=== PATIENT | male | born 1960 | race Caucasian/White ===

== ENCOUNTER 2018-08-20 19:18 | Inpatient (IN) | payer MEDICARE, OTHER ==
[2018-08-20] MEDS ORDERED: Sodium Chloride 0.9% 1,000 ML IV STA (23:26)
--- NOTE | 2018-08-20 23:31 | ED PDOC ---
HPI: Abdomen Time Seen by Provider: 08/20/18 23:02 Chief Complaint (Nursing): Abdominal Pain Chief Complaint (Provider): abdominal pain History Per: Patient, Family (son) History/Exam Limitations: no limitations Onset/Duration Of Symptoms: Days (3) Current Symptoms Are (Timing): Still Present Location Of Pain/Discomfort: Diffuse Associated Symptoms: Nausea, Vomiting Last Bowel Movement: Days Ago (2) Additional Complaint(s): 58 y/o male presents for evaluation of diffuse abdominal pain x 3 days. Associated nausea/vomiting. Patient states he is unable to keep anything down by mouth. Last bowel movement 2 days ago. Denies fever, chest pain, shortness of breath, palpitations, urinary symptoms. Patient was evaluated by his PMD today and sent to the ED for further evaluation PMD: Dr. Randy Quintero Past Medical History Reviewed: Historical Data, Nursing Documentation, Vital Signs Vital Signs: Last Vital Signs Temp 98.7 F 08/20/18 20:23 Pulse 96 H 08/20/18 20:23 Resp 16 08/20/18 20:23 BP 120/67 08/20/18 20:23 Pulse Ox 97 08/20/18 20:23 Primary Care Provider: Mikhail Quintero - Medical History PMH: Diabetes, Hyperlipidemia - Family History Family History: States: No Known Family Hx - Living Arrangements Living Arrangements: With Family - Allergies Allergies/Adverse Reactions: Allergies Allergy/AdvReac Type Severity Reaction Status Date / Time No Known Allergies Allergy Verified 08/20/18 20:22 Review of Systems ROS Statement: Except As Marked, All Systems Reviewed And Found Negative Gastrointestinal: Positive for: Nausea, Vomiting, Abdominal Pain, Constipation Physical Exam - Reviewed Nursing Documentation Reviewed: Yes Vital Signs Reviewed: Yes - Physical Exam Appears: Positive for: Well, Non-toxic, No Acute Distress Head Exam: Positive for: ATRAUMATIC, NORMAL INSPECTION, NORMOCEPHALIC Skin: Positive for: Normal Color Eye Exam: Positive for: Normal appearance ENT: Positive for: Normal ENT Inspection Cardiovascular/Chest: Positive for: Regular Rate, Rhythm Respiratory: Positive for: Normal Breath Sounds Gastrointestinal/Abdominal: Positive for: Soft, Tenderness (diffuse), Distended. Negative for: Bowel Sounds Back: Positive for: Normal Inspection Extremity: Positive for: Normal ROM Neurological/Psych: Positive for: Awake, Alert, Oriented (x3) - Laboratory Results Result Diagrams: 08/21/18 00:05 08/21/18 00:05 - ECG ECG: Positive for: Viewed By Me (reviewed by ED attending) ECG Rhythm: Positive for: Sinus Rhythm O2 Sat by Pulse Oximetry: 97 - Radiology X-Ray: Viewed By Me X-Ray Interpretation: No Acute Disease - Progress ED Course And Treament: -cbc -cmp -pt/ptt -urinalysis -ekg -cxr -CT abd/pelvis IV contrast -IV zofran -IV morphine -IV NS bolus CT SCAN OF THE ABDOMEN AND PELVIS WITH CONTRAST. CLINICAL HISTORY: Abdominal pain. Vomiting, constipated. TECHNIQUE: Multiple axial and coronal CT images were obtained through the abdomen and pelvis after administration of intravenous contrast material. COMMENTS: Bilateral basilar hypoventilatory pulmonary changes. Enlarged fatty liver. Impacted gallstone at the neck of the gallbladder. Distended, inflamed gallbladder. Acute calculous cholecystitis. Nondilated biliary tree. Uncomplicated colonic diverticulosis. Mild prostatomegaly. Scattered calcified atheromatous plaques in the aorta and its branches. There is no intra or extrahepatic biliary ductal dilatation. The spleen is normal. The pancreas is of normal contour and attenuation characteristics. There is no evidence of adrenal mass. Both kidneys demonstrate prompt and equal nephrograms. The kidneys are normal in size, shape and configuration. There is no evidence of renal or ureteral mass. No renal or ureteral calculi are identified. There is no hydroureter or hydronephrosis. No evidence for appendicitis. There is no bowel wall thickening. No evidence for small or large bowel obstruction. There is no evidence of a bdominal ascites or lymphadenopathy. There is no evidence of intrinsic or extrinsic bladder mass. There is no pelvic ascites or lymphadenopathy. Images of the lung bases show no evidence of pleural or parenchymal mass. There are no pleural effusions. The bony structures are free of lytic or blastic lesions. IMPRESSION: Bilateral basilar hypoventilatory pulmonary changes. Enlarged fatty liver. Impacted gallstone at the neck of the gallbladder. Distended, inflamed gallbladder. Acute calculous cholecystitis. Nondilated biliary tree. Uncomplicated colonic diverticulosis. Mild prostatomegaly. Scattered calcified atheromatous plaques in the aorta and its branches. Ultrasound the right upper quadrant. Indication: Abdominal pain. Vomiting. Constipation. Technique: Real-time ultrasound images were obtained. Findings: Enlarged liver measuring 22.8 cm. Diffuse hepatic steatosis. Impacted stone in the neck of the gallbladder measuring 3.5 cm. Diffuse thickening of the wall of the gallbladder measuring 6.2 mm. Negative sonographic Daniels. Nondilated common bile duct measuring 6.7 mm. Limited visualization of the pancreas secondary to gaseous bowel distention. Unremarkable IVC. Nonaneurysmal aorta. Unremarkable right kidney. Impression: Acute calculous cholecystitis IV zosyn ordered Case discussed with Dr. Quintero for admission Case discussed with Dr. Arredondo, enrollment services vice president on-call, for consult; recommends NPO Disposition - Clinical Impression Clinical Impression: Acute cholecystitis - Patient ED Disposition Is Patient to be Admitted: Yes - Disposition Disposition Time: 05:10 Condition: FAIR Forms: [facility] [employer] (Urdu)
[2018-08-21] MEDS ORDERED: Iohexol 300 100 ML IJ ONE (02:22)
[2018-08-21] MEDS ORDERED: Sodium Chloride 0.9% 50 ML IV ONE (02:22)
[2018-08-21 04:31] LABS: BASO # 0.1 K/uL (0.0-0.2); BASO % 0.4 % (0.0-2.0); EOS # 0.2 K/uL (0.0-0.7); EOS % 1.4 % (0.0-4.0); HEMOGLOBIN 14.5 g/dL (12.0-18.0); LYMPH # 2.7 K/uL (1.0-4.3); LYMPH % 19.6 % (20.0-40.0); MEAN CELL VOLUME 88.2 fl (80.0-94.0); MEAN CORPUSCULAR HEMOGLOBIN 29.3 pg (27.0-31.0); MEAN CORPUSCULAR HGB CONC 33.3 g/dL (33.0-37.0); NEUT # 9.9 K/uL (1.8-7.0); NEUT % 71.6 % (50.0-75.0); RBC 4.96 Mil/uL (4.40-5.90); RED CELL DISTRIBUTION WIDTH 14.4 % (11.5-14.5); WHITE BLOOD COUNT 13.8 K/uL (4.8-10.8)
[2018-08-21 04:38] LABS: BLOOD UREA NITROGEN 12 mg/dl (9-20); GFR NON-AFRICAN AMERICAN > 60; PARTIAL THROMBOPLASTIN TIME 43.3 Seconds (25.6-37.1)
[2018-08-21 04:39] LABS: ALB/GLOB RATIO 1.3 (1.0-2.1); ALBUMIN 4.6 g/dL (3.5-5.0); ALT/SGPT 26 U/L (21-72); AST/SGOT 29 U/L (17-59); CALCIUM 9.2 mg/dL (8.4-10.2); LIPASE 56 U/L (23-300)
[2018-08-21 04:40] LABS: URINE BILIRUBIN NEGATIVE (NEGATIVE); URINE BLOOD NEGATIVE (NEGATIVE); URINE CLARITY SLIGHTY-CLOUDY (Clear); URINE COLOR AMBER (YELLOW); URINE GLUCOSE (UA) NEG (NEGATIVE); URINE LEUKOCYTE ESTERASE NEG Leu/uL (Negative); URINE PROTEIN 30 mg/dL (NEGATIVE)
[2018-08-21 04:42] LABS: INR 1.1; PROTHROMBIN TIME 12.9 Seconds (9.8-13.1)
[2018-08-21] MEDS ORDERED: Piperacillin/Tazobact 3.375 GM in Sodium Chloride 0.9% 100 ML IV ONE (04:56)
--- NOTE | 2018-08-21 05:16 | CP.PCM.CON ---
History of Present Illness - History of Present Illness History of Present Illness: Surgery Consult note. Dr. Jacobsen service 58yo M with PMHx of DM, HTN who was admitted to the [facility] ED with RUQ/Epigastric pain for 4 days. Pain described as sharp, associated with Nausea and bilious emesis, worsening. Denies any remitting factors. Denies any subjective fevers or chills. No CP/SOB. No diarrhea. No urinary complaints. Last food intake yesterday afternoon. Reports no BMs in 3 days. Has been having regular flatus. Denies melena or bloody stool. CT A/P noted with impacted stone at GB neck with perichole fluid. Abd US noted with impacted stone at GB neck, GB wall thinkening and perichole fluid consistent with acute cholecystitis. PMHx: HTN, DM PSHx: bilateral knee miniscus repair Family Hx: non-contributory Social Hx: Lives alone. Denies Tobacco use, Denies illicit drugs, Denies ETOH use. NKDA Review of Systems - Review of Systems All systems: reviewed and no additional remarkable complaints except Past Patient History - Past Medical History & Family History Past Family History: Reviewed and not pertinent - Past Social History Smoking Status: Never Smoked Alcohol: None Drugs: Denies Home Situation {Lives}: Alone - ENDOCRINE/METABOLIC Hx Diabetes Mellitus Type 2: Yes - PSYCHIATRIC Hx Substance Use: No - SURGICAL HISTORY Hx Orthopedic Surgery: Yes (bilateral knee surgery) Other/Comment: ear surgery - ANESTHESIA Hx Anesthesia: Yes Meds Allergies/Adverse Reactions: Allergies Allergy/AdvReac Type Severity Reaction Status Date / Time No Known Allergies Allergy Verified 08/20/18 20:22 - Medications Medications: Current Medications Piperacillin Sod/Tazobactam (Sod 3.375 gm/ Sodium Chloride) 100 mls @ 100 mls/hr IV ONCE ONE; Protocol Stop: 08/21/18 05:55 Physical Exam - Constitutional Appears: Non-toxic - Head Exam Head Exam: ATRAUMATIC, NORMAL INSPECTION, NORMOCEPHALIC - Eye Exam Eye Exam: EOMI. absent: Scleral icterus - ENT Exam ENT Exam: Mucous Membranes Dry - Respiratory Exam Respiratory Exam: NORMAL BREATHING PATTERN. absent: Accessory Muscle Use - Cardiovascular Exam Cardiovascular Exam: RRR. absent: JVD - GI/Abdominal Exam GI & Abdominal Exam: Soft. absent: Distended, Firm, Guarding Additional comments: RUQ and epigastric tenderness +Daniels's sign - Extremities Exam Extremities exam: Positive for: normal inspection. Negative for: calf tenderness - Neurological Exam Neurological exam: Alert, Oriented x3 - Skin Skin Exam: Dry, Intact, Normal Color, Warm Results - Vital Signs Recent Vital Signs: Last Vital Signs Temp 98.7 F 08/20/18 20:23 Pulse 96 H 08/20/18 20:23 Resp 16 08/20/18 20:23 BP 120/67 08/20/18 20:23 Pulse Ox 97 08/20/18 23:31 - Labs Result Diagrams: 08/21/18 00:05 08/21/18 00:05 Labs: Laboratory Results - last 24 hr 08/21/18 08/21/18 08/21/18 00:05 00:05 00:05 WBC 13.8 H RBC 4.96 Hgb 14.5 Hct 43.7 MCV 88.2 MCH 29.3 MCHC 33.3 RDW 14.4 Plt Count 289 MPV 8.0 Neut % (Auto) 71.6 Lymph % (Auto) 19.6 L [place] % (Auto) 7.0 Eos % (Auto) 1.4 Baso % (Auto) 0.4 Neut # (Auto) 9.9 H Lymph # (Auto) 2.7 [place] # (Auto) 1.0 H Eos # (Auto) 0.2 Baso # (Auto) 0.1 PT 12.9 INR 1.1 APTT 43.3 H Sodium 137 Potassium 3.8 Chloride 98 Carbon Dioxide 28 Anion Gap 15 BUN 12 Creatinine 0.8 Est GFR ( Amer) > 60 Est GFR (Non-Af Amer) > 60 POC Glucose (mg/dL) Random Glucose 103 Calcium 9.2 Total Bilirubin 0.8 AST 29 ALT 26 Alkaline Phosphatase 117 Total Protein 8.2 Albumin 4.6 Globulin 3.6 Albumin/Globulin Ratio 1.3 Lipase 56 Urine Color Urine Clarity Urine pH Ur Specific [place] Urine Protein Urine Glucose (UA) Urine Ketones Urine Blood Urine Nitrate Urine Bilirubin Urine Urobilinogen Ur Leukocyte Esterase Urine RBC (Auto) Urine Microscopic WBC 08/21/18 08/21/18 00:05 00:19 WBC RBC Hgb Hct MCV MCH MCHC RDW Plt Count MPV Neut % (Auto) Lymph % (Auto) [place] % (Auto) Eos % (Auto) Baso % (Auto) Neut # (Auto) Lymph # (Auto) [place] # (Auto) Eos # (Auto) Baso # (Auto) PT INR APTT Sodium Potassium Chloride Carbon Dioxide Anion Gap BUN Creatinine Est GFR ( Amer) Est GFR (Non-Af Amer) POC Glucose (mg/dL) 115 H Random Glucose Calcium Total Bilirubin AST ALT Alkaline Phosphatase Total Protein Albumin Globulin Albumin/Globulin Ratio Lipase Urine Color Areli Urine Clarity Slighty-cloudy Urine pH 6.0 Ur Specific [place] 1.026 Urine Protein 30 Urine Glucose (UA) Neg Urine Ketones Negative Urine Blood Negative Urine Nitrate Negative Urine Bilirubin Negative Urine Urobilinogen 4.0 Ur Leukocyte Esterase Neg Urine RBC (Auto) 7 H Urine Microscopic WBC < 1 Assessment & Plan - Assessment and Plan (Free Text) Assessment: 58yo M with acute cholecystitis - CT A/P and Abd US noted with findings consistent with cholecystitis Plan: - IVF - antiemetics as needed - pain management - IV Abx - Patient will benefit from cholecystectomy during this admission - we will monitor patient clinically and make recommendations as warranted Further recs as per Dr. Delmar Arredondo PGY2 surgery
[2018-08-21] MEDS ORDERED: Piperacillin/Tazobact 3.375 gm Inj IVPB ONE (05:47)
--- NOTE | 2018-08-21 09:32 | RAD ---
Date of service: 08/20/2018 HISTORY: admit COMPARISON: No prior. TECHNIQUE: 1 view obtained. FINDINGS: LUNGS: No consolidation appreciated the left infrahilar bronchovascular markings appear borderline prom minimal left infrahilar peribronchial thickening inflammatory changes of unknown chronicity not excluded. Linear punctate opacities in the left mid to upper lung zone may reflect granulomatous change and or tiny thin scars. PLEURA: No pleural effusions seen. Minimal biapical pleural thickening suggested. Pneumothorax noted CARDIOVASCULAR: There is presence of aortic atherosclerotic calcification on x-ray. Normal cardiac size. No pulmonary vascular congestion. OSSEOUS STRUCTURES: No fracture seen. Apparent developmental variation of the right 1st and 2nd ribs anteriorly some bulbous prominence of the cortex here noted. VISUALIZED UPPER ABDOMEN: Thoracic spondylosis. Normal. OTHER FINDINGS: None. IMPRESSION: No consolidation. Other findings as above.
--- NOTE | 2018-08-21 10:34 | CT ---
Date of service: 08/21/2018 PROCEDURE: CT Abdomen and Pelvis with contrast HISTORY: abd pain, vomiting, constipated COMPARISON: Low TECHNIQUE: Intravenous contrast dose: 100 cc Omnipaque 300. Radiation dose: Total exam DLP = 922.49 mGy-cm. This CT exam was performed using one or more of the following dose reduction techniques: Automated exposure control, adjustment of the mA and/or kV according to patient size, and/or use of iterative reconstruction technique. FINDINGS: LOWER THORAX: Unremarkable. LIVER: Hepatic steatosis. No focal masses. No intrahepatic bile duct dilatation or perihepatic ascites. GALLBLADDER AND BILE DUCTS: Solitary gallstone impacted in the neck of the gallbladder 2.2 x 2.8 cm. Resultant distention of the gallbladder, gallbladder wall thickening, pericholecystic fluid and inflammatory change consistent with acute cholecystitis. The inflammatory changes extend to the transverse colon. PANCREAS: Unremarkable. No gross lesion or ductal dilatation. SPLEEN: Unremarkable. ADRENALS: Unremarkable. No mass. KIDNEYS AND URETERS: Unremarkable. No hydronephrosis. No solid mass. VASCULATURE: Atherosclerotic calcification and mural plaque present. Findings are seen throughout the aorta which is non aneurysmal. BOWEL: Diverticulosis without an acute inflammatory component or other associated pathologic process. APPENDIX: Normal appendix. PERITONEUM: Unremarkable. No free fluid. No free air. LYMPH NODES: Unremarkable. No enlarged lymph nodes. BLADDER: Unremarkable. REPRODUCTIVE: Unremarkable. BONES: No acute fracture. OTHER FINDINGS: None. IMPRESSION: Cholelithiasis/acute cholecystitis. Additional benign and/or incidental findings described above. Concordant results (preliminary interpretation) provided by [employer]. Procedure Completed: 02:40. Preliminary Report: Interpreted and electronically signed: 03:13. Final Interpretation: 10:30.
--- NOTE | 2018-08-21 11:10 | US ---
Date of service: 08/21/2018 HISTORY: ORDER DOWN TIME COMPARISON: None. TECHNIQUE: Sonographic evaluation of the right upper quadrant of the abdomen. FINDINGS: LIVER: Measures 22.9 cm in length. Diffuse increased echogenicity echogenicity of the liver parenchyma. No mass. No intrahepatic bile duct dilatation. GALLBLADDER: In the gallbladder neck a large stone appears impacted with measurements varying up to 3.5 cm in width. Gallbladder wall also slightly thickened some images measuring up to 6 mm. Other images a 3 to 4 mm. No positive ultrasound Daniels sign elicited No prominent ascites seen. Some trace pericholecystic fluid cannot be excluded. COMMON BILE DUCT: Measures 6.7 mm. No stones. No dilatation. PANCREAS: Unremarkable as visualized. No mass. No ductal dilatation. RIGHT KIDNEY: Measures 11.3 cm in length. Normal echogenicity. No calculus, mass, or hydronephrosis. AORTA: No aneurysmal dilatation. IVC: Unremarkable. OTHER FINDINGS: None . IMPRESSION: Large gallstone measuring up to 3.5 cm in width-appears impacted in the gallbladder neck. Gallbladder wall thickening without dilated ducts. No positive ultrasound Daniels sign elicited. Findings are concerning for an acute/subacute the calculus cholecystitis. Hepatomegaly with hepatic steatosis. Concordant results (preliminary interpretation) provided by [employer].
--- NOTE | 2018-08-21 11:21 | CARD ---
APPROVED REPORT Date of service: 08/21/2018 EKG Measurement Heart [id number] <Conclusion> Normal sinus rhythm Normal ECG
[2018-08-21] MEDS ORDERED: Chlorhexidine Gluconate 1 APPL/PKT TP ONE (11:49)
--- NOTE | 2018-08-21 12:00 | CP.PCM.CON ---
History of Present Illness - History of Present Illness History of Present Illness: 58yo M PMHX HTN, DM presents to ED with 4 day history of epigastric/RUQ pain radiating to the back. Pt reports multiple episodes of bilious vomiting. Pt unable to tolerate food intake. +constipation. Denies any previous similar symptoms. Pt denies any fever, chills, sob, cp, diarrhea, dysuria. Review of Systems - Review of Systems Systems not reviewed;Unavailable: Acuity of Condition (stable ) - Constitutional Constitutional: As Per HPI, Fatigue, Weakness. absent: Fever - EENT Eyes: absent: Change in Vision - Cardiovascular Cardiovascular: As Per HPI, Dyspnea on Exertion. absent: Chest Pain, Chest Pain at Rest, Chest Pain with Activity - Respiratory Respiratory: Dyspnea on Exertion - Gastrointestinal Gastrointestinal: Abdominal Pain, Bloating, Change in Bowel Habits, Constipation, Nausea, Vomiting. absent: Coffee Ground Emesis, Cramping, Diarrhea, Dyspepsia - Genitourinary Genitourinary: absent: Hematuria - Musculoskeletal Musculoskeletal: As Per HPI - Integumentary Integumentary: As Per HPI - Neurological Neurological: As Per HPI - Hematologic/Lymphatic Hematologic: As Per HPI Past Patient History - Past Social History Smoking Status: Never Smoked - CARDIAC Hx Hypertension: Yes - ENDOCRINE/METABOLIC Hx Endocrine Disorders: Yes Hx Diabetes Mellitus Type 2: Yes - PSYCHIATRIC Hx Substance Use: No - SURGICAL HISTORY Hx Orthopedic Surgery: Yes (bilateral knee surgery) Other/Comment: ear surgery - ANESTHESIA Hx Anesthesia: Yes Meds Allergies/Adverse Reactions: Allergies Allergy/AdvReac Type Severity Reaction Status Date / Time No Known Allergies Allergy Verified 08/20/18 20:22 Physical Exam - Constitutional Appears: No Acute Distress - Head Exam Head Exam: ATRAUMATIC, NORMAL INSPECTION, NORMOCEPHALIC - Eye Exam Eye Exam: EOMI, Normal appearance, PERRL. absent: Scleral icterus - ENT Exam ENT Exam: Mucous Membranes Dry - Neck Exam Neck exam: Negative for: Lymphadenopathy - Respiratory Exam Respiratory Exam: Clear to Auscultation Bilateral. absent: Accessory Muscle Use - Cardiovascular Exam Cardiovascular Exam: +S1, +S2 - GI/Abdominal Exam GI & Abdominal Exam: Soft, Tenderness. absent: Distended, Firm, Guarding, Hyperactive Bowel Sounds, Rebound, Rigid Additional comments: +epigastric tenderness +murphys - Rectal Exam Rectal Exam: NORMAL INSPECTION. absent: Hemorrhoids, Fecal Impaction - Extremities Exam Extremities exam: Positive for: full ROM. Negative for: calf tenderness - Skin Skin Exam: Normal Color, Warm Results - Vital Signs Recent Vital Signs: Last Vital Signs Temp 98.9 F 08/21/18 11:24 Pulse 75 08/21/18 11:24 Resp 18 08/21/18 11:24 BP 131/63 08/21/18 11:24 Pulse Ox 99 08/21/18 08:42 - Labs Result Diagrams: 08/21/18 00:05 08/21/18 00:05 Labs: Laboratory Results - last 24 hr 08/21/18 08/21/18 08/21/18 00:05 00:05 00:05 WBC 13.8 H RBC 4.96 Hgb 14.5 Hct 43.7 MCV 88.2 MCH 29.3 MCHC 33.3 RDW 14.4 Plt Count 289 MPV 8.0 Neut % (Auto) 71.6 Lymph % (Auto) 19.6 L [place] % (Auto) 7.0 Eos % (Auto) 1.4 Baso % (Auto) 0.4 Neut # (Auto) 9.9 H Lymph # (Auto) 2.7 [place] # (Auto) 1.0 H Eos # (Auto) 0.2 Baso # (Auto) 0.1 PT 12.9 INR 1.1 APTT 43.3 H Sodium 137 Potassium 3.8 Chloride 98 Carbon Dioxide 28 Anion Gap 15 BUN 12 Creatinine 0.8 Est GFR ( Amer) > 60 Est GFR (Non-Af Amer) > 60 POC Glucose (mg/dL) Random Glucose 103 Lactic Acid Calcium 9.2 Total Bilirubin 0.8 AST 29 ALT 26 Alkaline Phosphatase 117 Total Protein 8.2 Albumin 4.6 Globulin 3.6 Albumin/Globulin Ratio 1.3 Lipase 56 Urine Color Urine Clarity Urine pH Ur Specific [place] Urine Protein Urine Glucose (UA) Urine Ketones Urine Blood Urine Nitrate Urine Bilirubin Urine Urobilinogen Ur Leukocyte Esterase Urine RBC (Auto) Urine Microscopic WBC 08/21/18 08/21/18 08/21/18 00:05 00:19 00:19 WBC RBC Hgb Hct MCV MCH MCHC RDW Plt Count MPV Neut % (Auto) Lymph % (Auto) [place] % (Auto) Eos % (Auto) Baso % (Auto) Neut # (Auto) Lymph # (Auto) [place] # (Auto) Eos # (Auto) Baso # (Auto) PT INR APTT Sodium Potassium Chloride Carbon Dioxide Anion Gap BUN Creatinine Est GFR ( Amer) Est GFR (Non-Af Amer) POC Glucose (mg/dL) 115 H 115 H Random Glucose Lactic Acid Calcium Total Bilirubin AST ALT Alkaline Phosphatase Total Protein Albumin Globulin Albumin/Globulin Ratio Lipase Urine Color Areli Urine Clarity Slighty-cloudy Urine pH 6.0 Ur Specific [place] 1.026 Urine Protein 30 Urine Glucose (UA) Neg Urine Ketones Negative Urine Blood Negative Urine Nitrate Negative Urine Bilirubin Negative Urine Urobilinogen 4.0 Ur Leukocyte Esterase Neg Urine RBC (Auto) 7 H Urine Microscopic WBC < 1 08/21/18 05:45 WBC RBC Hgb Hct MCV MCH MCHC RDW Plt Count MPV Neut % (Auto) Lymph % (Auto) [place] % (Auto) Eos % (Auto) Baso % (Auto) Neut # (Auto) Lymph # (Auto) [place] # (Auto) Eos # (Auto) Baso # (Auto) PT INR APTT Sodium Potassium Chloride Carbon Dioxide Anion Gap BUN Creatinine Est GFR ( Amer) Est GFR (Non-Af Amer) POC Glucose (mg/dL) Random Glucose Lactic Acid 0.8 Calcium Total Bilirubin AST ALT Alkaline Phosphatase Total Protein Albumin Globulin Albumin/Globulin Ratio Lipase Urine Color Urine Clarity Urine pH Ur Specific [place] Urine Protein Urine Glucose (UA) Urine Ketones Urine Blood Urine Nitrate Urine Bilirubin Urine Urobilinogen Ur Leukocyte Esterase Urine RBC (Auto) Urine Microscopic WBC - Imaging and Cardiology CT scan - abdomen Status: Image reviewed by me, Report reviewed by me US - abdomen Status: Image reviewed by me, Report reviewed by me Assessment & Plan - Assessment and Plan (Free Text) Assessment: 58yo M with abdominal pain secondary to acute cholecystitis -pain control -IV fluids -clear liquids -zofran prn nausea/vomiting -IV abx -NPO after midnight -laparoscopic cholecystectomy 08/22 - Date & Time Date: 08/21/18 Time: 12:05
[2018-08-21] MEDS ORDERED: Oxycodone/Acetaminophen 5/325 mg Tab PO PRN ×2 (12:02→12:03)
[2018-08-21] MEDS: Lactated Ringer's 1,000 ML IV SCH ×2 (13:59→22:08)
[2018-08-21] MEDS: Piperacillin/Tazobact 3.375 GM in Sodium Chloride 0.9% 100 ML IVPB SCH (19:05)
[2018-08-21] MEDS ORDERED: Ergocalciferol 50,000 Intl Units Cap PO SCH (19:30)
[2018-08-22] MEDS: Piperacillin/Tazobact 3.375 GM in Sodium Chloride 0.9% 100 ML IVPB SCH ×3 (01:38→16:20)
--- NOTE | 2018-08-22 02:17 | CP.PCM.HP ---
History of Present Illness - History of Present Illness History of Present Illness: HPI: 58 y/o male with a PMH of Hyperlipidemia and DM presented to the ED for evaluation of diffuse abdominal pain x 3 days, with associated nausea and constipation. The pt was seen in our office the evening before hospitalization and was advised to go to the ED due to a distended abdomen, absent bowel sounds, and severe nausea. The original presentation resembled that of bowel obstruction, however CT abdomen and pelvis revealed Cholelithiasis/Acute cholecystitis. Surgery was consulted, and the pt is for OR tomorrow morning. The pt was seen and assessed by this provider in the ED. PMH: DM, Hyperlipidemia, Vit D deficiency. PSH: Meniscus repair (bilateral knees). Allergies: NKDA. Review of Systems: Reviewed and no additional remarkable complaints except diffuse abdominal pain. Objective Appears: Calm, Non-toxic, No Acute Distress. Head Exam: NORMAL INSPECTION, normocephalic. Eye Exam: Normal eye inspection, EOMI, PERRLA. Respiratory Exam: NORMAL BREATHING PATTERN, CTA. Cardiovascular Exam: +S1, +S2. RRR. GI & Abdominal Exam: mildly distended abdomen, diffuse tenderness on palpation, (+) [place] sign. Neurological Exam: Alert, Awake, Oriented x3. Psychiatric exam: Normal mood. Calm and cooperative. Skin exam: Normal color, warm and dry. Assessment/Impression/Plan: 1.) Acute Cholecystitis -For cholecystectomy tomorrow. Clear liquids for now, then NPO past midnight. -CXR, EKG, and labs reviewedunremarkable, pt medically cleared for surgery at this time. -IVF hydration: LR @ 100 ml/hr. Zosyn antibiotics. -Morphine for pain. Anti-emetics (Zofran) for nausea. -Consults input appreciated. -SCDs for VTE. -Continue current treatment. Present on Admission - Present on Admission Any Indicators Present on Admission: No Past Patient History - Past Medical History & Family History Past Family History: Reviewed and not pertinent - Past Social History Smoking Status: Never Smoked Alcohol: None Drugs: Denies Home Situation {Lives}: Alone - CARDIAC Hx Hypertension: Yes - ENDOCRINE/METABOLIC Hx Diabetes Mellitus Type 2: Yes - MUSCULOSKELETAL/RHEUMATOLOGICAL Hx Falls: No - PSYCHIATRIC Hx Substance Use: No - SURGICAL HISTORY Hx Orthopedic Surgery: Yes (bilateral knee surgery) Other/Comment: ear surgery - ANESTHESIA Hx Anesthesia: Yes Meds Allergies/Adverse Reactions: Allergies Allergy/AdvReac Type Severity Reaction Status Date / Time No Known Allergies Allergy Verified 08/20/18 20:22 Results - Vital Signs Recent Vital Signs: Last Vital Signs Temp 97.5 F L 08/22/18 00:06 Pulse 77 08/22/18 00:06 Resp 18 08/22/18 00:06 BP 133/69 08/22/18 00:06 Pulse Ox 95 08/22/18 00:06 - Labs Result Diagrams: 08/21/18 00:05 08/21/18 00:05 Labs: Laboratory Results - last 24 hr 08/21/18 08/21/18 08/21/18 00:05 00:05 00:05 WBC 13.8 H RBC 4.96 Hgb 14.5 Hct 43.7 MCV 88.2 MCH 29.3 MCHC 33.3 RDW 14.4 Plt Count 289 MPV 8.0 Neut % (Auto) 71.6 Lymph % (Auto) 19.6 L Stephens % (Auto) 7.0 Eos % (Auto) 1.4 Baso % (Auto) 0.4 Neut # (Auto) 9.9 H Lymph # (Auto) 2.7 Stephens # (Auto) 1.0 H Eos # (Auto) 0.2 Baso # (Auto) 0.1 PT 12.9 INR 1.1 APTT 43.3 H Sodium 137 Potassium 3.8 Chloride 98 Carbon Dioxide 28 Anion Gap 15 BUN 12 Creatinine 0.8 Est GFR ( Amer) > 60 Est GFR (Non-Af Amer) > 60 POC Glucose (mg/dL) Random Glucose 103 Lactic Acid Calcium 9.2 Total Bilirubin 0.8 AST 29 ALT 26 Alkaline Phosphatase 117 Total Protein 8.2 Albumin 4.6 Globulin 3.6 Albumin/Globulin Ratio 1.3 Lipase 56 Urine Color Urine Clarity Urine pH Ur Specific [place] Urine Protein Urine Glucose (UA) Urine Ketones Urine Blood Urine Nitrate Urine Bilirubin Urine Urobilinogen Ur Leukocyte Esterase Urine RBC (Auto) Urine Microscopic WBC 08/21/18 08/21/18 08/21/18 00:05 00:19 00:19 WBC RBC Hgb Hct MCV MCH MCHC RDW Plt Count MPV Neut % (Auto) Lymph % (Auto) Stephens % (Auto) Eos % (Auto) Baso % (Auto) Neut # (Auto) Lymph # (Auto) Stephens # (Auto) Eos # (Auto) Baso # (Auto) PT INR APTT Sodium Potassium Chloride Carbon Dioxide Anion Gap BUN Creatinine Est GFR ( Amer) Est GFR (Non-Af Amer) POC Glucose (mg/dL) 115 H 115 H Random Glucose Lactic Acid Calcium Total Bilirubin AST ALT Alkaline Phosphatase Total Protein Albumin Globulin Albumin/Globulin Ratio Lipase Urine Color Areli Urine Clarity Slighty-cloudy Urine pH 6.0 Ur Specific [place] 1.026 Urine Protein 30 Urine Glucose (UA) Neg Urine Ketones Negative Urine Blood Negative Urine Nitrate Negative Urine Bilirubin Negative Urine Urobilinogen 4.0 Ur Leukocyte Esterase Neg Urine RBC (Auto) 7 H Urine Microscopic WBC < 1 08/21/18 08/21/18 08/21/18 05:45 19:25 21:12 WBC RBC Hgb Hct MCV MCH MCHC RDW Plt Count MPV Neut % (Auto) Lymph % (Auto) Stephens % (Auto) Eos % (Auto) Baso % (Auto) Neut # (Auto) Lymph # (Auto) Stephens # (Auto) Eos # (Auto) Baso # (Auto) PT INR APTT Sodium Potassium Chloride Carbon Dioxide Anion Gap BUN Creatinine Est GFR ( Amer) Est GFR (Non-Af Amer) POC Glucose (mg/dL) 139 H 133 H Random Glucose Lactic Acid 0.8 Calcium Total Bilirubin AST ALT Alkaline Phosphatase Total Protein Albumin Globulin Albumin/Globulin Ratio Lipase Urine Color Urine Clarity Urine pH Ur Specific [place] Urine Protein Urine Glucose (UA) Urine Ketones Urine Blood Urine Nitrate Urine Bilirubin Urine Urobilinogen Ur Leukocyte Esterase Urine RBC (Auto) Urine Microscopic WBC Assessment & Plan (1) Acute cholecystitis Status: Acute
[2018-08-22 07:03] LABS: BASO # 0.1 K/uL (0.0-0.2); BASO % 0.7 % (0.0-2.0); EOS # 0.3 K/uL (0.0-0.7); EOS % 2.1 % (0.0-4.0); LYMPH # 2.3 K/uL (1.0-4.3); LYMPH % 16.5 % (20.0-40.0); MEAN CELL VOLUME 88.1 fl (80.0-94.0); MEAN CORPUSCULAR HEMOGLOBIN 29.5 pg (27.0-31.0); MEAN CORPUSCULAR HGB CONC 33.5 g/dL (33.0-37.0); MEAN PLATELET VOLUME 8.2 fl (7.2-11.7); MONO # 1.1 K/uL (0.0-0.8); MONO % 7.7 % (0.0-10.0); NEUT # 10.4 K/uL (1.8-7.0); NRBC % 0.1 % (0.0-0.0); RBC 4.75 Mil/uL (4.40-5.90); WHITE BLOOD COUNT 14.2 K/uL (4.8-10.8)
[2018-08-22 07:19] LABS: ALB/GLOB RATIO 1.2 (1.0-2.1); ALBUMIN 4.2 g/dL (3.5-5.0); ALT/SGPT 31 U/L (21-72); AST/SGOT 31 U/L (17-59); BLOOD UREA NITROGEN 10 mg/dl (9-20); CALCIUM 8.9 mg/dL (8.4-10.2); GFR NON-AFRICAN AMERICAN > 60
[2018-08-22] MEDS: Lidocaine 5% Patch TD SCH (08:49)
[2018-08-22] MEDS: Lactated Ringer's 1,000 ML IV SCH ×3 (12:23→21:27)
[2018-08-22] MEDS ORDERED: Lidocaine 1% Inj (20ml) ONE (12:31)
[2018-08-22] MEDS ORDERED: Lactated Ringer's 1,000 ML IV ONE ×3 (13:10→15:16)
[2018-08-22] MEDS ORDERED: Rocuronium 10 mg/ml (5 ml) ONE ×2 (13:13→14:03)
[2018-08-22] MEDS ORDERED: Midazolam 2 MG/2 ML VIAL ONE (13:13)
[2018-08-22] MEDS ORDERED: Propofol 10 mg/ml Inj (20 ML) ONE (13:13)
[2018-08-22] MEDS: Bupivacaine 0.5% Inj(30mL) ONE ×2 (14:19→14:39)
[2018-08-22] MEDS ORDERED: Neostigmine 1:1000 (1 mg/ml) Inj ONE (14:37)
--- NOTE | 2018-08-22 15:15 | PCM.SURG1 ---
Surgeon's Initial Post Op Note - Surgeon's Notes Surgeon: Dr. Howie Mansfield, Dr. Jovan Berman [employer] Tester: Bernarda Galan, PGY-4; Nely Carbajal, PGY-2 Type of Anesthesia: General Endo Anesthesia Administered By: Dr. Shannne Sanches Pre-Operative Diagnosis: Acute cholecystitis Operative Findings: Inflammed, edematous gallbladder Post-Operative Diagnosis: Acute cholecystitis Operation Performed: Laparoscopic cholecystectomy Specimen/Specimens Removed: Gallbladder Estimated Blood Loss: EBL {In ML}: 50 Blood Products Given: N/A Drains Used: No Drains Post-Op Condition: Good Date of Surgery/Procedure: 08/22/18 Time of Surgery/Procedure: 15:14
[2018-08-22] MEDS ORDERED: oxyCODONE 5 mg Immediate Release Tab PO PRN (15:16)
[2018-08-22] MEDS ORDERED: HYDROmorphone 0.5 mg/0.5 ml ISec IVP PRN (15:19)
[2018-08-22] MEDS: Oxycodone/Acetaminophen 5/325 mg Tab PO PRN (23:51)
--- NOTE | 2018-08-22 23:56 | CP.PCM.PN ---
Subjective - Date & Time of Evaluation Date of Evaluation: 08/22/18 Time of Evaluation: 10:30 - Subjective Subjective: Pt seen and assessed at bedside. For scheduled lap curt procedure today, has been NPO since midnight. No new additional complaints reported. Review of Systems: Reviewed and no additional remarkable complaints except di ffuse abdominal pain. Objective Appears: Calm, Non-toxic, No Acute Distress. Head Exam: NORMAL INSPECTION, normocephalic. Eye Exam: Normal eye inspection, EOMI, PERRLA. Respiratory Exam: NORMAL BREATHING PATTERN, CTA. Cardiovascular Exam: +S1, +S2. RRR. GI & Abdominal Exam: mildly distended abdomen, diffuse tenderness on palpation, (+) [place] sign. Neurological Exam: Alert, Awake, Oriented x3. Psychiatric exam: Normal mood. Calm and cooperative. Skin exam: Normal color, warm and dry. Assessment/Impression/Plan: 1.) Acute Cholecystitis -For lap cholecystectomy today. -Maintain NPO status. -Zosyn IVPB antibiotics. -Consults input appreciated. -Monitor for s/s of infection post-operatively. -Continue current treatment. Objective - Vital Signs/Intake and Output Vital Signs (last 24 hours): Temp Pulse Resp BP Pulse Ox 98.4 F 72 20 123/74 95 08/22/18 19:30 08/22/18 19:30 08/22/18 19:30 08/22/18 19:30 08/22/18 19:30 Intake and Output: 08/22/18 08/23/18 18:59 06:59 Intake Total 1250 Balance 1250 - Medications Medications: Current Medications Acetaminophen (Tylenol 325mg Tab) 650 mg PO Q4 PRN PRN Reason: Pain, Mild (1-3) Ergocalciferol (Drisdol 50,000 Intl Units Cap) 1 cap PO WE [facility]EL Last Admin: 08/21/18 22:59 Dose: 1 cap Hydromorphone HCl (Dilaudid) 0.5 mg IVP Q10M PRN PRN Reason: Pain, moderate (4-7) Piperacillin Sod/Tazobactam (Sod 3.375 gm/ Sodium Chloride) 100 mls @ 100 mls/hr IVPB Q8 MICHAEL; Protocol Last Admin: 08/22/18 16:20 Dose: 100 mls Ibuprofen (Motrin Tab) 800 mg PO Q8 PRN PRN Reason: Pain, Mild (1-3) Lidocaine (Lidoderm) 1 ea TD DAILY [facility] Last Admin: 08/22/18 08:49 Dose: Not Given Metformin HCl (Glucophage) 500 mg PO BID [facility] Last Admin: 08/22/18 19:50 Dose: Not Given Ondansetron HCl (Zofran Inj) 4 mg IVP Q6 PRN PRN Reason: Nausea/Vomiting Oxycodone/Acetaminophen (Percocet 5/325 Mg Tab) 1 tab PO Q4 PRN PRN Reason: Pain, severe (8-10) Stop: 08/24/18 12:03 Last Admin: 08/22/18 23:51 Dose: 1 tab Tramadol HCl (Ultram) 50 mg PO Q4 PRN PRN Reason: Pain, moderate (4-7) - Labs Labs: 08/22/18 06:00 08/22/18 06:00 PT 12.9 Seconds (9.8-13.1) 08/21/18 00:05 INR 1.1 08/21/18 00:05 APTT 43.3 Seconds (25.6-37.1) H 08/21/18 00:05 Assessment and Plan (1) Acute cholecystitis Status: Acute
[2018-08-23] MEDS: Piperacillin/Tazobact 3.375 GM in Sodium Chloride 0.9% 100 ML IVPB SCH ×3 (00:03→16:51)
--- NOTE | 2018-08-23 02:36 | OP ---
PROCEDURE DATE: 08/22/2018 PREOPERATIVE DIAGNOSIS: Acute cholecystitis. POSTOPERATIVE DIAGNOSIS: Acute cholecystitis. PROCEDURE: Laparoscopic cholecystectomy. SURGEON: Howie Jacobsen MD CALL TAKER: Jovan Berman MD; residents, Marino Galan DO and Nely Carbajal DO ANESTHESIA: General. FINDINGS: The patient had hydrops of the gallbladder, acutely inflamed gallbladder with a thickened wall non-gangrenous, cystic duct, cystic artery, and critical view of safety identified. SPECIMEN: Gallbladder. ESTIMATED BLOOD LOSS: 50 mL. CONDITION: Stable. BRIEF HISTORY: This is a 58-year-old male who presented to the emergency room with a three or four-day history of right upper quadrant epigastric pain which was associated with multiple episodes of vomiting. In the emergency room, the patient had a CAT scan along with an ultrasound which was consistent with acute cholecystitis. The patient was admitted to the hospital and placed on IV antibiotics and prepped for the operating room. The patient was explained the risks and benefits of procedure, not limited to bleeding, infection, bile duct injury or injury to surrounding structures. The patient agreed and surgical consent was obtained. DESCRIPTION OF PROCEDURE: On the date of procedure, the patient was brought to the operating room. He was placed in supine position. Bilateral sequential devices were placed to the lower extremities. The patient was already on antibiotics, so no further prophylactic antibiotics given. The patient was then placed under general endotracheal anesthesia, which he tolerated well. The patient was prepped and draped in usual sterile fashion using chlorhexidine. After an adequate time-out, we began our procedure. Using a Veress needle, the abdominal cavity was inserted. The abdomen was then insufflated with 250 mmHg using CO2 with good opening pressures. The patient tolerated insufflation well. We then proceeded to make a supraumbilical 1 cm incision using an 11 blade scalpel. We then proceed to place an 11-mm trocar into the abdominal cavity. At this point, we placed a 5-mm laparoscope into the abdominal cavity and performed a diagnostic laparoscopy, no obvious injury noted from our initial port site insertion. Of note, once we did notice significant amount of inflammation to the right upper quadrant with omentum attached to the gallbladder. In this way, we proceeded to place three additional 5-mm ports, one to the subxiphoid area and two additional ports to the right abdomen, all under direct visualization. At this point, we began our procedure. The gallbladder was acutely inflamed and distended with omental adhesions. Using suction irrigation, the omentum was bluntly dissected off the gallbladder. Once we were able to remove the omentum attached to the gallbladder using grasper, the gallbladder was retracted to the right upper quadrant. We then proceeded to use a [place] dissector in order to isolate the cystic duct. Once the cystic duct was isolated, two clips were placed distally and one proximally and transected. In similar fashion, using the [place] dissector, the cystic artery was isolated and two clips were placed distally and one proximally. We now proceeded to remove the gallbladder off the liver bed using the hook cautery. Using hook cautery, the bladder was removed off the liver bed. Meticulous attention was paid to the liver bed in order to obtain adequate hemostasis throughout the procedure. Once the gallbladder was removed off the liver bed, it was placed in an EndoCatch bag. The liver bed was once again examined for adequate hemostasis and hook cautery was used on the liver bed for adequate hemostasis. The liver bed and the liver fossa was then copiously irrigated with saline. All irrigation was suctioned off and we were satisfied with our hemostasis. We then proceeded to remove the gallbladder through the umbilical port site under direct visualization. Due to the size of the gallbladder, the fascial incision at the umbilicus was extended proximally and distally in order to remove the gallbladder. Having removed the gallbladder, we then proceeded to close the fascia at the umbilicus using 0 Vicryl stitch and a [id number] stitch with a combination of interrupted stitch. Once the fascia was reapproximated, we once again paid attention to the liver to the right upper quadrant and any remaining irrigation was suctioned out. Having been satisfied with our procedure, the abdominal cavity was desufflated and the trocars were removed. The laparoscopic port sites along with the umbilical incision was reapproximated using 4-0 Monocryl. The port sites were then infiltrated with local anesthetic. The abdomen was cleaned and washed. Then, Dermabond was applied to the port sites. The patient tolerated the procedure well. He was brought to recovery room in stable condition. At the end of procedure, there was adequate count to all instruments, sponges, and needles. Howie Jacobsen MD
[2018-08-23] MEDS: Oxycodone/Acetaminophen 5/325 mg Tab PO PRN (05:56)
[2018-08-23 06:39] LABS: BASO % 0.4 % (0.0-2.0); EOS # 0.1 K/uL (0.0-0.7); EOS % 0.8 % (0.0-4.0); HEMOGLOBIN 12.8 g/dL (12.0-18.0); LYMPH % 15.4 % (20.0-40.0); MEAN CELL VOLUME 88.6 fl (80.0-94.0); MEAN CORPUSCULAR HGB CONC 32.8 g/dL (33.0-37.0); MEAN PLATELET VOLUME 8.3 fl (7.2-11.7); MONO # 0.9 K/uL (0.0-0.8); MONO % 6.9 % (0.0-10.0); NEUT # 10.2 K/uL (1.8-7.0); NEUT % 76.5 % (50.0-75.0); NRBC % 0.1 % (0.0-0.0); RBC 4.42 Mil/uL (4.40-5.90); WHITE BLOOD COUNT 13.3 K/uL (4.8-10.8)
[2018-08-23 06:50] LABS: ALB/GLOB RATIO 1.1 (1.0-2.1); ALT/SGPT 31 U/L (21-72); AST/SGOT 42 U/L (17-59); BLOOD UREA NITROGEN 10 mg/dl (9-20); CALCIUM 8.1 mg/dL (8.4-10.2); GFR NON-AFRICAN AMERICAN > 60
--- NOTE | 2018-08-23 08:53 | CP.PCM.PN ---
<Nely Carbajal - Last Filed: 08/23/18 08:51> Subjective - Date & Time of Evaluation Date of Evaluation: 08/23/18 Time of Evaluation: 07:30 - Subjective Subjective: General surgery progress note for Dr. Kaitlin Carbajal, PGY-2 Pt seen/examined at bedside Pt reports a lot of pain at his umbilical incision site- explained to pt need for larger incision due to size of gallstone. Denies N & V, F & C, CP, SOB. Reports hunger- told pt it is ok to eat. Objective - Vital Signs/Intake and Output Vital Signs (last 24 hours): Temp Pulse Resp BP Pulse Ox 98.1 F 84 20 146/77 98 08/23/18 08:12 08/23/18 08:12 08/23/18 08:12 08/23/18 08:12 08/23/18 08:12 - Medications Medications: Current Medications Acetaminophen (Tylenol 325mg Tab) 650 mg PO Q4 PRN PRN Reason: Pain, Mild (1-3) Ergocalciferol (Drisdol 50,000 Intl Units Cap) 1 cap PO WE [facility] Last Admin: 08/21/18 22:59 Dose: 1 cap Hydromorphone HCl (Dilaudid) 0.5 mg IVP Q10M PRN PRN Reason: Pain, moderate (4-7) Piperacillin Sod/Tazobactam (Sod 3.375 gm/ Sodium Chloride) 100 mls @ 100 mls/hr IVPB Q8 [facility]HAEL; Protocol Last Admin: 08/23/18 00:03 Dose: 100 mls/hr Ibuprofen (Motrin Tab) 800 mg PO Q8 PRN PRN Reason: Pain, Mild (1-3) Lidocaine (Lidoderm) 1 ea TD DAILY [facility] Last Admin: 08/22/18 08:49 Dose: Not Given Metformin HCl (Glucophage) 500 mg PO BID [facility] Last Admin: 08/22/18 19:50 Dose: Not Given Ondansetron HCl (Zofran Inj) 4 mg IVP Q6 PRN PRN Reason: Nausea/Vomiting Oxycodone/Acetaminophen (Percocet 5/325 Mg Tab) 1 tab PO Q4 PRN PRN Reason: Pain, severe (8-10) Stop: 08/24/18 12:03 Last Admin: 08/23/18 05:56 Dose: 1 tab Tramadol HCl (Ultram) 50 mg PO Q4 PRN PRN Reason: Pain, moderate (4-7) - Labs Labs: 08/23/18 05:20 08/23/18 05:20 PT 12.9 Seconds (9.8-13.1) 08/21/18 00:05 INR 1.1 08/21/18 00:05 APTT 43.3 Seconds (25.6-37.1) H 08/21/18 00:05 - Constitutional Appears: Non-toxic, No Acute Distress - Head Exam Head Exam: ATRAUMATIC, NORMAL INSPECTION, NORMOCEPHALIC - Eye Exam Eye Exam: EOMI, Normal appearance - ENT Exam ENT Exam: Mucous Membranes Moist, Normal Exam - Respiratory Exam Respiratory Exam: Clear to Ausculation Bilateral, NORMAL BREATHING PATTERN - Cardiovascular Exam Cardiovascular Exam: REGULAR RHYTHM - GI/Abdominal Exam GI & Abdominal Exam: Soft, Tenderness (at umbilical incision site). absent: Distended (obese), Firm, Guarding, Rigid Additional comments: abdominal incision sites with glue in place, small amount of ecchymoses - Extremities Exam Extremities Exam: Normal Inspection - Neurological Exam Neurological Exam: Alert, Awake, CN II-XII Intact, Oriented x3 - Psychiatric Exam Psychiatric exam: Normal Affect, Normal Mood - Skin Skin Exam: Dry, Intact, Normal Color, Warm Assessment and Plan - Assessment and Plan (Free Text) Assessment: 58M POD#1 s/p lap cholecystectomy Plan: Regular diet Pain control Continue ABx Ambulate OOBTC Encourage IS use Further care as per primary team DW Dr. Delmar Carbajal, PGY-2 <Howie Jacobsen - Last Filed: 08/23/18 10:47> Objective - Vital Signs/Intake and Output Vital Signs (last 24 hours): Temp Pulse Resp BP Pulse Ox 98.1 F 84 20 146/77 98 08/23/18 08:12 08/23/18 08:12 08/23/18 08:12 08/23/18 08:12 08/23/18 08:12 - Medications Medications: Current Medications Acetaminophen (Tylenol 325mg Tab) 650 mg PO Q4 PRN PRN Reason: Pain, Mild (1-3) Ergocalciferol (Drisdol 50,000 Intl Units Cap) 1 cap PO WE MICHAEL Last Admin: 08/21/18 22:59 Dose: 1 cap Hydromorphone HCl (Dilaudid) 0.5 mg IVP Q10M PRN PRN Reason: Pain, moderate (4-7) Piperacillin Sod/Tazobactam (Sod 3.375 gm/ Sodium Chloride) 100 mls @ 100 mls/hr IVPB Q8 MICHAEL; Protocol Last Admin: 08/23/18 09:39 Dose: 100 mls/hr Ibuprofen (Motrin Tab) 800 mg PO Q8 PRN PRN Reason: Pain, Mild (1-3) Lidocaine (Lidoderm) 1 ea TD DAILY [facility] Last Admin: 08/23/18 09:37 Dose: Not Given Metformin HCl (Glucophage) 500 mg PO BID [facility] Last Admin: 08/23/18 09:37 Dose: 500 mg Ondansetron HCl (Zofran Inj) 4 mg IVP Q6 PRN PRN Reason: Nausea/Vomiting Oxycodone/Acetaminophen (Percocet 5/325 Mg Tab) 1 tab PO Q4 PRN PRN Reason: Pain, severe (8-10) Stop: 08/24/18 12:03 Last Admin: 08/23/18 05:56 Dose: 1 tab Tramadol HCl (Ultram) 50 mg PO Q4 PRN PRN Reason: Pain, moderate (4-7) Last Admin: 08/23/18 09:10 Dose: 50 mg - Labs Labs: 08/23/18 05:20 08/23/18 05:20 PT 12.9 Seconds (9.8-13.1) 08/21/18 00:05 INR 1.1 08/21/18 00:05 APTT 43.3 Seconds (25.6-37.1) H 08/21/18 00:05 Assessment and Plan - Assessment and Plan (Free Text) Plan: seen at [facility], no overnight events. Pt tolerating diet, no nausea or vomiting. pt reports incisional pain mostly localized to umbilical wound size. Pt afebrile, hemodynamically stable. gen: awake, alert, NAD heent: NC/AT, EOMI, no scleral icterus no acute respiratory distress abd: soft, distended, appropriate incisional tendenress, lap port incisions c/d/i 58yo M s/p laparoscopic cholecystectomy POD #1 would recommend one more day of IV abx regular diet pain control incentive spirometry
[2018-08-23] MEDS: Lidocaine 5% Patch TD SCH (09:37)
[2018-08-23] MEDS ORDERED: Docusate-Senna 50 mg-8.6 mg Tab PO PRN (11:11)
[2018-08-23] MEDS ORDERED: Enoxaparin 40 mg Syringe SC SCH (11:45)
[2018-08-23] MEDS: oxyCODONE 5 mg Immediate Release Tab PO PRN (13:38)
[2018-08-23] MEDS ORDERED: Chlorhexidine Gluconate 1 APPL/PKT TP ONE (14:49)
[2018-08-23 23:41] VITALS: BMI 33.3
[2018-08-24] MEDS: Piperacillin/Tazobact 3.375 GM in Sodium Chloride 0.9% 100 ML IVPB SCH ×2 (02:01→09:45)
[2018-08-24 08:21] VITALS: BP 144/79; PULSE 81; RESP 20; TEMP 98.9; O2SAT 98
--- NOTE | 2018-08-24 09:29 | CP.PCM.PN ---
Subjective - Date & Time of Evaluation Date of Evaluation: 08/24/18 Time of Evaluation: 09:26 - Subjective Subjective: General surgery progress note for Dr. Kaitlin Carbajal, PGY-2 Pt seen/examined at bedside Pt reports BM over last 24 hrs, continues with some pain at umbilical incision site. Tolerating diet, denies N & V. Ambulating. No further complaints. Objective - Vital Signs/Intake and Output Vital Signs (last 24 hours): Temp Pulse Resp BP Pulse Ox 98.9 F 81 20 144/79 98 08/24/18 08:20 08/24/18 08:20 08/24/18 08:20 08/24/18 08:20 08/24/18 08:20 - Medications Medications: Current Medications Acetaminophen (Tylenol 325mg Tab) 650 mg PO Q4 PRN PRN Reason: Pain, Mild (1-3) Last Admin: 08/23/18 16:56 Dose: 650 mg Enoxaparin Sodium (Lovenox) 40 mg SC DAILY [facility]; Protocol Ergocalciferol (Drisdol 50,000 Intl Units Cap) 1 cap PO WE [facility] Last Admin: 08/21/18 22:59 Dose: 1 cap Piperacillin Sod/Tazobactam (Sod 3.375 gm/ Sodium Chloride) 100 mls @ 100 mls/hr IVPB Q8 [facility]; Protocol Last Admin: 08/24/18 02:01 Dose: 100 mls/hr Lidocaine (Lidoderm) 1 ea TD DAILY [facility] Last Admin: 08/23/18 09:37 Dose: Not Given Metformin HCl (Glucophage) 500 mg PO BID [facility] Last Admin: 08/23/18 17:20 Dose: 500 mg Ondansetron HCl (Zofran Inj) 4 mg IVP Q6 PRN PRN Reason: Nausea/Vomiting Oxycodone HCl (Oxycodone Immediate Release Tab) 5 mg PO Q6 PRN PRN Reason: Pain, severe (8-10) Last Admin: 08/23/18 13:38 Dose: 5 mg Senna/Docusate Sodium (Senokot S 50 Mg-8.6 Mg) 1 tab PO DAILY PRN PRN Reason: Constipation Last Admin: 08/23/18 13:39 Dose: 1 tab Tramadol HCl (Ultram) 50 mg PO Q4 PRN PRN Reason: Pain, moderate (4-7) Last Admin: 08/23/18 09:10 Dose: 50 mg - Labs Labs: 08/23/18 05:20 08/23/18 05:20 PT 12.9 Seconds (9.8-13.1) 08/21/18 00:05 INR 1.1 08/21/18 00:05 APTT 43.3 Seconds (25.6-37.1) H 08/21/18 00:05 - Constitutional Appears: Non-toxic, No Acute Distress - Head Exam Head Exam: ATRAUMATIC, NORMAL INSPECTION, NORMOCEPHALIC - Eye Exam Eye Exam: EOMI, Normal appearance - ENT Exam ENT Exam: Mucous Membranes Moist, Normal Exam - Neck Exam Neck Exam: Full ROM - Respiratory Exam Respiratory Exam: NORMAL BREATHING PATTERN - Cardiovascular Exam Cardiovascular Exam: REGULAR RHYTHM - GI/Abdominal Exam GI & Abdominal Exam: Soft, Tenderness (mild, over incision sites). absent: Distended (obese), Firm, Guarding - Extremities Exam Extremities Exam: Normal Inspection - Neurological Exam Neurological Exam: Alert, Awake, CN II-XII Intact, Oriented x3 - Psychiatric Exam Psychiatric exam: Normal Affect, Normal Mood - Skin Skin Exam: Dry, Intact, Normal Color, Warm Assessment and Plan - Assessment and Plan (Free Text) Assessment: 58M POD#2 s/p lap cholecystectomy Plan: Patient cleared for d/c home from surgical standpoint Rx for pain and Abx in chart pt to follow up with Dr. Jacobsen in 1-2 weeks Ok to shower, washing gently with soap and water Ok to walk No heavy lifting for 4-6 weeks Ok to resume normal diet LAURY Carbajal, PGY-2
[2018-08-24] MEDS: Lidocaine 5% Patch TD SCH (09:44)
[2018-08-24] MEDS: oxyCODONE 5 mg Immediate Release Tab PO PRN (09:53)
== END 2018-08-24 16:14 | disposition home or self-care (01) | DRG 418 ==
LOC: H.ER 19:18 → H.ERHOLD 08-21 04:56 → H.MEDSURG1 08-21 11:31
PROVIDERS: ADMIT Family Medicine; ATTEND Family Medicine
PROC: 0FT44ZZ Resection of Gallbladder, Percutaneous Endoscopic Approach (ICD-10-PCS; principal; 2018-08-22 14:30)
DX: K80.00 Calculus of gallbladder with acute cholecystitis without obstruction (principal); K82.1 Hydrops of gallbladder; E11.9 Type 2 diabetes mellitus without complications; E78.5 Hyperlipidemia, unspecified; I10 Essential (primary) hypertension; K57.30 Diverticulosis of large intestine without perforation or abscess without bleeding; K76.0 Fatty (change of) liver, not elsewhere classified; N40.0 Benign prostatic hyperplasia without lower urinary tract symptoms; E55.9 Vitamin D deficiency, unspecified